=== PATIENT | male | born 1970 | race Caucasian/White ===

== ENCOUNTER 2025-01-18 18:19 | Emergency (ER) | payer OTHER, SELFPAY ==
[2025-01-18 18:30] VITALS: BP 119/81; PULSE 92; O2SAT 94
[2025-01-18 18:37] LABS: Coronavirus 19, PCR Not Detected (NotDetected); Influenza A, PCR Not Detected (NotDetected); Influenza B, PCR Not Detected (NotDetected)
[2025-01-18 18:40] VITALS: BP 126/73; PULSE 97; RESP 16; TEMP 37.6; O2SAT 95; BMI 18.3
--- NOTE | 2025-01-18 18:48 | [facility].EDGENADL ---
Discharge Plan Disposition Patient Disposition: Home, Self-Care Prescriptions Prescriptions: New loperamide 2 mg capsule 2 mg PO Q6H PRN (Reason: loose stool) 5 Days Qty: 20 0RF Rx Instructions: Please take 4 mg initially, followed by 2 mg after each loose stool, maximum 16 mg/day ondansetron 4 mg tablet,disintegrating 4 mg PO Q6H PRN (Reason: nausea and vomiting) 5 Days Qty: 20 0RF Referrals Follow up/Referrals: Provider,Referral, MD [Primary Care Provider, Medical] - See instructions Activity Restrictions/Add. Instructions Additional Instructions/Restrictions: No evidence of severe endorgan damage secondary to dehydration your symptoms are most likely secondary to a viral illness. Please take your symptomatic medications as needed keep yourself well-hydrated with salt and sugar containing fluids like a or Powerade until your urine is clear. Return with any significant worsening of her symptoms. Clinical Impressions Clinical Impression: Nausea vomiting and diarrhea, Generalized weakness Print Language Print Language: Chinese Discharge ED Provider: Layla Myers General Adult HPI General Chief complaint: Weakness Stated complaint: Vomiting,diarrhea,congestion,weakness Time Seen by Provider: 01/18/25 18:40 Mode of Arrival: Ambulatory Source of Information: Patient Description of Symptoms (Recalled from ER Triage Doc. by RN): Pt presents with N/V/D x 4 days associated with weakness. Denies abdominal pain at this time. History of Present Illness HPI narrative: Patient is a 54-year-old male presenting today with nausea and vomiting diarrhea for 4 days with profound generalized weakness. Has continued to have urine output no blood in the stool or his vomit. No positive sick contacts he is aware. Has had a mild cough. No fever or chills. No other significant past medical history. Related Data Previous Rx's ?Medication ?Instructions ?Recorded loperamide 2 mg capsule 2 mg PO Q6H PRN loose stool 5 days 01/18/25 #20 caps ondansetron 4 mg disintegrating 4 mg PO Q6H PRN nausea and 01/18/25 tablet vomiting 5 days #20 tabs Allergies Allergy/AdvReac Type Severity Reaction Status Date / Time Penicillins (PENICILLINS) Allergy Severe THROAT Verified 01/18/25 19:10 CLOSED [facility] Disclaimer: The information contained in this section may have been updated after the patient was seen, as this information can be updated by other users. Social History Smoking Status: Current every day smoker alcohol intake: never current occupational status: other Travel in the last 8 weeks?: None ROS Obtained: Yes All systems reviewed & no additional complaints except as documented Physical Exam General General appearance: alert Chest Chest inspection: Present normal inspection and symmetric chest wall rise Respiratory Respiratory exam: Present normal lung sounds bilaterally Cardiovascular Cardiovascular exam: Present regular rate and normal rhythm Abdominal Exam Abdominal exam: Present soft and distention Neurological Exam Neurological exam: Present alert and oriented X3 Medical Decision Making Medical Records Screening: Per USPSTF and CDC recommendations, given the prevalence of disease in our region, it is our hospital?s policy to screen for HIV and viral Hepatitis for all patients aged 18 and over and those with ongoing risk factors. Ad Inquiry Pt receiving controlled substance: No Vital Signs: 01/18/25 18:30 01/18/25 18:40 Temperature 99.6 F Temperature Source Oral Pulse Rate 92 H Pulse Rate [Left] 97 H Respiratory Rate 16 Blood Pressure 119/81 Blood Pressure [Right Arm] 126/73 Blood Pressure Mean [Right Arm] 90 Blood Pressure Source [Right Arm] Automatic Cuff Blood Pressure Position [Right Arm] Sitting 02 Sat by Pulse Oximetry 94 L 95 Oxygen Delivery Method Room Air Room Air Lab Data Lab results reviewed: Yes I reviewed the patient's lab results. Lab Results 01/18/25 18:31: SARS-CoV-2 (PCR) Not detected, Influenza A Untype (PCR) Not detected, Influenza Type B (PCR) Not detected 01/18/25 18:35: WBC 15.6 H, RBC 4.42 L, Hgb 12.0 L, Hct 34.9 L, MCV 79.0 L, MCH 27.1, MCHC 34.4, RDW 12.6, Plt Count 228, MPV 9.2, Neut % (Auto) 85.6 H, Lymph % (Auto) 6.2 L, Fergus % (Auto) 7.4, Eos % (Auto) 0.3, Baso % (Auto) 0.2, Neut # (Auto) 13.4 H, Lymph # (Auto) 1.0, Fergus # (Auto) 1.2 H, Eos # (Auto) 0.0, Baso # (Auto) 0.0, Sodium 131 L, Potassium 3.6, Chloride 100, Carbon Dioxide 26, Anion Gap 8.6, BUN 8 L, Creatinine 0.80, Estimated Creat Clear 79, Estimated GFR 101, Est GFR ( Amer) 122, Glucose 117 H, Calcium 8.8, Phosphorus 2.1 L, Magnesium 1.6, Total Bilirubin 0.6, AST 29, ALT 23, Alkaline Phosphatase 69, Total Protein 6.5, Albumin 3.9, Globulin 2.6, Albumin/Globulin Ratio 1.5 01/18/25 18:35 01/18/25 18:35 Orders (Tests/Meds): ED MEDICATIONS Discontinued Medications Generic Name Dose Route Start Last Admin Trade Name Freq PRN Reason Stop Dose Admin Lactated Ringer's 1,000 mls @ 999 mls/hr 01/18/25 18:45 01/18/25 19:11 Lactated Ringer's 1000 Ml Bag IV 01/18/25 19:45 999 mls/hr .Q1H1M CUBA Administration Ondansetron HCl 4 mg 01/18/25 18:45 01/18/25 19:11 Ondansetron 4mg/2ml Vial IV 01/18/25 18:46 4 mg ONCE ONE Administration ORDERS Category Date Time Status CBC w/Auto Diff [Complete Blood Count Auto Diff] Stat Lab 01/18/25 18:35 Completed CMP [Comprehensive Metabolic Panel] Stat Lab 01/18/25 18:35 Completed HIV Combo Stat Lab 01/18/25 18:35 Received Hepatitis C Ab Qual. W/ RFX Stat Lab 01/18/25 18:35 Received Magnesium Stat Lab 01/18/25 18:35 Completed Phosphorous Stat Lab 01/18/25 18:35 Completed Rapid PCR Covid and Flu A/B Stat Lab 01/18/25 18:31 Completed Medical Decision Narrative: Patient is a 54-year-old male present today with nausea vomiting diarrhea and generalized weakness most likely secondary to dehydration. The underlying etiology is most likely viral in nature. Does not have any signs or symptoms of invasive bacterial species at the moment or risk factors to warrant a bacterial PCR or GI PCR panel at this point. Abdominal exam is benign no indication for CT imaging at the moment. IV fluids nausea medication and labs have been ordered patient will be reassessed shortly. Reassessment 7:48 PM patient feeling much better serial abdominal exams are benign he has some mild hyponatremia and hypophosphatemia but nothing significant. Also has a nonspecific leukocytosis. I do not suspect any significant intra-abdominal pathology or bacterial infection or sepsis. Patient tolerating p.o. prescription of loperamide and Zofran sent to his pharmacy advised to aggressively push fluids and follow-up with his primary care doctor if needed or return to the emergency department any significant worsening of symptoms. Critical Care Critical Care Time Critical Care Time: No
[2025-01-18 18:52] LABS: Basophils % 0.2 % (0.1-2.0); Eosinophils % 0.3 % (0.1-12.0); Hematocrit 34.9 % (42.0-52.0); Immature Granulocytes # 0.05 10^3uL; Immature Granulocytes % 0.3 %; Lymphocytes % 6.2 % (10-50); Mean Corpuscular HGB Conc 34.4 g/dL (31.8-35.4); Mean Corpuscular Hemoglobin 27.1 pg (27.0-31.2); Mean Platelet Volume 9.2 fl (7.4-10.4); Monocytes # 1.2 K/mm3 (0.1-1.0); Monocytes % 7.4 % (1.7-9.3); Neutrophils # 13.4 K/mm3 (1.8-7.8); Neutrophils % 85.6 % (37.0-80.0); Nucleated Red Blood Cells # 0 10^3/uL; Nucleated Red Blood Cells % 0 %; Platelet Count 228 K/mm3 (142-424); Red Blood Count 4.42 M/mm3 (4.60-6.20); Red Cell Distribution Width 12.6 % (11.5-17.5); Red Cell Distribution Width-SD 35.8 fL; White Blood Count 15.6 K/mm3 (4.8-10.8)
[2025-01-18 18:58] LABS: Alanine Aminotransferase 23 U/L (12-78); Albumin Level 3.9 g/dl (3.5-5.0); Albumin/Globulin Ratio 1.5 (1.1-1.8); Alkaline Phosphatase 69 U/L (38-126); Anion Gap 8.6 mEq/L (5-15); Aspartate Amino Transferase 29 U/L (17-59); Bilirubin,Total 0.6 mg/dl (0.2-1.3); Blood Urea Nitrogen 8 mg/dl (9-20); Calcium 8.8 mg/dl (8.4-10.2); Carbon Dioxide 26 mmol/L (22.0-30.0); Chloride 100 mmol/L (98-107); Creatinine Clearance Estimated 79 mL/min (50-200); Estimated Glomerular Filt Rate 101 ml/min (>60); GFR (African American) 122 ML/MIN (>60); Globulin 2.6 g/dL (1.3-3.2); Glucose 117 mg/dl (74-100); Magnesium 1.6 mg/dl (1.6-2.3); Phosphorous 2.1 mg/dl (2.5-4.5); Potassium 3.6 mmoL/L (3.5-5.1); Sodium 131 mmol/L (136-145); Total Protein,Serum 6.5 g/dl (6.3-8.2)
[2025-01-18] MEDS: LACTATED RINGERS 1000ML 1,000 ML 999 ML IV (19:11)
[2025-01-18] MEDS: ONDANSETRON 4MG/2ML VIAL 4 MG IV (19:11)
[2025-01-18 19:54] VITALS: BP 114/63; PULSE 79; RESP 14; TEMP 37.1; O2SAT 96
[2025-01-18 19:57] LABS: HIV Combo NEGATIVE (Negative)
[2025-01-18 20:05] LABS: Hepatitis C Ab Qual. W/ RFX NEGATIVE (Negative)
== END 2025-01-18 19:55 | disposition home or self-care (01) ==
PROVIDERS: Emergency Provider Student in an Organized Health Care Education/Training Program
DX: R11.2 Nausea with vomiting, unspecified (principal); E87.1 Hypo-osmolality and hyponatremia; R53.1 Weakness; F17.210 Nicotine dependence, cigarettes, uncomplicated; Z11.59 Encounter for screening for other viral diseases; Z11.4 Encounter for screening for human immunodeficiency virus [HIV]
CPT/HCPCS: 80053; 83735; 84100; 85025; 86803; 87389; 87636; 96361; 96374; 99284; J2405; J7120